=== PATIENT | male | born 1945 | race Caucasian/White ===

== ENCOUNTER 2017-08-23 05:19 | Day surgery (SDC) | payer MEDICARE, BC ==
[2017-08-23] MEDS ORDERED: Dextrose 5%-0.45% NaCl 1,000 ML IV SCH (06:00)
[2017-08-23] MEDS ORDERED: Sodium Chloride 0.9% 10 ML Syringe FLUSH PRN (06:00)
[2017-08-23] MEDS ORDERED: Midazolam 1 MG/ML 2 ML SDV ONE (06:17)
[2017-08-23] MEDS ORDERED: fentaNYL 100 MCG/2 ML SDV ONE (06:18)
[2017-08-23] MEDS ORDERED: fentaNYL 100 MCG/2 ML SDV IV ONE ×2 (06:31→06:32)
[2017-08-23] MEDS ORDERED: Midazolam 1 MG/ML 2 ML SDV IV ONE ×3 (06:32→06:35)
--- NOTE | 2017-08-23 07:35 | OR ---
DATE: 08/23/2017 PROCEDURES PERFORMED: Total colonoscopy and cold snare polypectomy. INSTRUMENT USED: CF-H180AL Olympus videocolonoscope, Olympus distal detachment device. PREMEDICATIONS: Fentanyl 100 mcg intravenous and Versed 2.5 mg intravenous. Nasal O2 cannula. The procedure was done under pulse oximetry, BP recording, and shelter monitor. INDICATIONS: Screening colonoscopic examination is done for detection of any polypoid lesions and removal, endoscopic hemostasis therapy if needed. DESCRIPTION OF PROCEDURE: Rectal exam was unremarkable. Rigid anoscopy was normal. The colonoscope was passed with ease. In the mid rectum, a 5 mm sized benign-appearing polyp was noted, photograph was taken, cold snare polypectomy was done, the polyp was retrieved and sent for histopathology. Numerous scattered diverticula were noted in the distal left colon along with deformity. The scope was passed with ease up to the ileocecal area, photographs were taken of the normal-appearing cecum identified by landmarks of appendiceal orifice and double-bulged ileocecal folds. No bleeding was noted from any of the visualized areas at the commencement of the examination. No stricture. No vascular ectasia. No large isolated ulcerations seen. No evidence of diffuse inflammatory bowel disease in the form of friability, contact bleeding, or ulcerations. Probing the proximal sides of folds and flexures, using adequate distention and clearing of the stool material, withdrawal of the scope was made, cecum to rectum time over 6 minutes. No bleeding was noted from any of the visualized areas at the completion of the examination. IMPRESSION: 1. Rectal polyp. 2. Diverticulosis. The patient tolerated the procedure well. [facility] /[id number]
[2017-08-23 08:58] VITALS: BP 132/76
== END 2017-08-23 08:55 | disposition home or self-care (01) ==
LOC: DL.ENDO 05:19
PROVIDERS: ATTEND Internal Medicine Gastroenterology
DX: Z12.11 Encounter for screening for malignant neoplasm of colon (principal); D12.8 Benign neoplasm of rectum; K57.30 Diverticulosis of large intestine without perforation or abscess without bleeding; I10 Essential (primary) hypertension; E11.9 Type 2 diabetes mellitus without complications; E66.09 Other obesity due to excess calories; H91.90 Unspecified hearing loss, unspecified ear; E78.5 Hyperlipidemia, unspecified; G47.33 Obstructive sleep apnea (adult) (pediatric); I25.10 Atherosclerotic heart disease of native coronary artery without angina pectoris; Z79.82 Long term (current) use of aspirin; Z88.0 Allergy status to penicillin; Z88.6 Allergy status to analgesic agent
CPT/HCPCS: J2250; J3010; J7042